=== PATIENT | male | born 1950 | race Caucasian/White ===

== ENCOUNTER → 2019-09-08 12:40 | Outpatient (BNVA) | payer MEDICARE, SELFPAY | PROVIDERS: PCP Physician Assistant Medical; Referring Provider Physician Assistant Medical; Visit Provider Surgery | DX: R22.9 Localized swelling, mass and lump, unspecified (principal); C76.8 Malignant neoplasm of other specified ill-defined sites | CPT/HCPCS: 20206; 99202; 99203 ==

== ENCOUNTER 2019-09-08 14:27 | Outpatient (REF) | payer MEDICARE, SELFPAY ==
--- NOTE | 2019-09-08 13:30 | SKI_PTH ---
PATIENT: MOMO PASTRANA LOC: NA U#:[id number] AGE/SX: 69/M ROOM: RE09/08/[address]: Melinda Salgado MD : 1950 BED: DIS: 09/08/2019 SPEC #: [id number] RECD: 09/08/19 17:04 STATUS: AMANDA RETere #: [id number] ANN: 09/08/19 13:[address]: Melinda Salgado DEPT: Surgical Specimen RECD BY: Ines Swanson ENTERED: 09/08/19 17:05 SP TYPE: SKI OTHR DR: Eron Benitez Tissues: 1 - SKIN BIOPSY(SHAVE/PUNCH) Procedures: GROSS AND MICRO LEVEL 4 IMMUNOPEROXIDASE STAIN Comments: [id number]
== END 2019-09-08 14:47 ==
LOC: LBN 14:27
PROVIDERS: PCP Physician Assistant Medical; Visit Provider Surgery
DX: C76.3 Malignant neoplasm of pelvis (principal)
CPT/HCPCS: 88305; 88361

== ENCOUNTER 2019-11-03 11:57 | Outpatient (REF) | payer MEDICARE, SELFPAY ==
[2019-11-03 12:27] LABS: Abs Immature Grans 0.03 k/cumm (0.0-0.09); Absolute Basophil Count 0.01 k/cumm (0.0-0.2); Absolute Lymphocyte Count 0.79 k/cumm (1.2-3.4); Absolute Monocyte Count 0.64 k/cumm (0.11-0.7); Basophils % 0.1; HCT 37.3 % (40.0-50.0); HGB 12.8 g/dL (13.5-17.5); Immature Grans % 0.4 %; Lymphocytes % 11.2; Mean Corp. HGB Concentration 34.3 g/dL (32.0-36.0); Mean Corpuscular Hemoglobin 30.3 pg (27.0-33.0); Mean Corpuscular Volume 88.4 fL (80-95); Mean Platelet Volume 10.7 fL (8.0-11.0); Monocytes % 9.1; Neutrophils % 79.2; RBC 4.22 m/cumm (4.50-6.00); RBC Distribution Width 12.9 % (11.8-14.1); White Blood Cell Count 7.07 k/cumm (4.4-10.8)
[2019-11-03 12:29] LABS: ALT 39 U/L (16-63); AST 22 U/L (15-37); Albumin 2.7 g/dL (3.4-5.0); Alkaline Phosphatase 150 U/L (46-116); Anion Gap 9.1 mmol/L (3-11); BUN 40 mg/dL (7-18); Bilirubin, Total 0.4 mg/dL (0.2-1.0); CO2 27.9 mmol/L (21.0-32.0); CREATININE 2.35 mg/dL (0.70-1.30); Calcium 8.9 mg/dL (8.5-10.1); Chloride 96 mmol/L (98-107); Estimated GFR 27.81 (mL/min/1.73m2); Glucose 157 mg/dL (74-106); Potassium 4.5 mmol/L (3.5-5.1); Sodium 133 mmol/L (136-145); Total Protein 6.4 g/dL (6.4-8.2)
[2019-11-03 13:15] LABS: Platelet Count 67 x1000/uL (130-400)
[2019-11-03 13:16] LABS: Basophilic Stippling Present
[2019-11-03 13:17] LABS: Polychromasia Present
== END 2019-11-03 12:17 ==
LOC: LBN 11:57
PROVIDERS: PCP Physician Assistant Medical; Visit Provider Internal Medicine Hospice and Palliative Medicine
DX: C34.92 Malignant neoplasm of unspecified part of left bronchus or lung (principal)
CPT/HCPCS: 80053; 85025